=== PATIENT | female | born 1960 | race Caucasian/White ===

== ENCOUNTER 2020-04-02 11:19 | Observation (INO) | payer MEDICARE, OTHER ==
[2020-04-02] MEDS ORDERED: SODIUM CHLORIDE 0.9% (FLUSH) 10 ML SYG IV PRN ×2 (12:18→16:49)
[2020-04-02] MEDS ORDERED: ASPIRIN TABLET 325 MG TAB ONE (12:32)
--- NOTE | 2020-04-02 12:38 | RAD ---
EXAM DESCRIPTION: Chest,1 View CLINICAL HISTORY: 59 years Female, chest pain COMPARISON: None. TECHNIQUE: AP portable chest. FINDINGS: Heart size is normal with normal pulmonary vascularity. No consolidating infiltrate. No pulmonary mass or worrisome nodule. No pneumothorax or pleural effusion. Bones are unremarkable. IMPRESSION: No acute process is identified in the chest. Electronically signed by: Richard Ji MD 04/02/2020 12:36 PM CDT
--- NOTE | 2020-04-02 14:49 | ED.PDOC ---
History of Present Illness - General Chief Complaint: Cardiovascular Problem Stated Complaint: chest pain Time Seen by Provider: 04/02/20 14:25 Source: patient, RN notes reviewed, Vital Signs reviewed, family - - History of Present Illness Initial Comments: Patient is a 59-year-old white female who presents with recurrent intermittent chest pain for the last week. It is worsening. It is substernal and radiates to the left shoulder. Is pressure and tightness. Worsened with exertion. Better with rest. The episodes last about 15 minutes. With the chest pain she gets short of breath. No diaphoresis. Timing/Duration: 1 week, getting worse, intermittent, other - 2-3 episodes over the last week. They are worsening. The pain lasts approximately 15 minutes before going away. Severity/Quality: moderate, pressure, tightness Location: substernal Chest Pain Radiation: shoulders - left Activities at Onset: activity Prior Chest Pain/Cardiac Workup: no prior chest pain, no prior cardiac workup Improving Factors: rest Worsening Factors: movement Nitro Today/Relief: no nitro taken today Aspirin Treatment Today: 81 mg x 4 Associated Symptoms: fatigue, shortness of breath Allergies/Adverse Reactions: Allergies NO KNOWN ALLERGY Allergy (Verified 04/02/20 11:39) Home Medications: Ambulatory Orders NK 04/02/20 Review of Systems - Review of Systems Constitutional: States: see HPI, malaise, weakness. Denies: chills, fever EENTM: States: no symptoms reported. Denies: eye pain, blurred vision, double vision Respiratory: States: see HPI, short of breath. Denies: cough, stridor, wheezing Cardiology: States: see HPI, chest pain. Denies: palpitations, syncope Gastrointestinal/Abdominal: States: no symptoms reported. Denies: abdominal pain, diarrhea, nausea, vomiting Genitourinary: States: no symptoms reported Musculoskeletal: States: no symptoms reported. Denies: back pain, neck pain Skin: States: no symptoms reported. Denies: change in color, rash Neurological: States: no symptoms reported. Denies: tingling, tremors, weakness Endocrine: States: no symptoms reported Hematologic/Lymphatic: States: no symptoms reported All other Systems: Reviewed and Negative Past Medical History (General) - Patient Medical History Hx Asthma: No Hx of COPD: No Hx Cardiac Disorders: No Hx Congestive Heart Failure: No Hx Hypertension: No Hx Diabetes: No Surgical History: other - Vaccination History Hx Tetanus, Diphtheria Vaccination: No Hx Influenza Vaccination: No Hx Pneumococcal Vaccination: No - Social History Hx Tobacco Use: No Hx Alcohol Use: No Hx Substance Use: No Hx Substance Use Treatment: No Hx Depression: No - Female History Patient is a Female of Child Bearing Age (10 -59 yrs old): No Family Medical History - Family History Sister Living Status: Cause of : [place] @ age 51 Hx Family;Other: Brother due to [place] at age 51 Physical Exam - Physical Exam General Appearance: Alert, Anxious, Obese, Well Developed, Well Groomed, Well Hydrated, Well Nourished Eyes, Ears, Nose, Throat Exam: PERRL/EOMI, normal ENT inspection, pharynx normal Neck: non-tender, full range of motion, supple, normal inspection Respiratory: chest non-tender, lungs clear, normal breath sounds, no respiratory distress, no accessory muscle use Cardiovascular/Chest: normal peripheral pulses, regular rate, rhythm, no edema, no gallop, no JVD, no murmur Peripheral Pulses: radial,right: 2+, radial,left: 2+ Gastrointestinal/Abdominal: normal bowel sounds, non tender, soft, no organomegaly, no pulsatile mass Extremity: normal range of motion, non-tender, normal inspection, no pedal edema Neurologic: engineer technical staff II-XII nml as tested, no motor/sensory deficits, alert, normal mood/affect, oriented x 3 Skin Exam: normal color, warm/dry Lymphatic: no adenopathy Progress - Progress Progress: Differential diagnosis: Acute [place], unstable angina, pneumonia, anxiety among others. 04/02/20 16:01 Patient has had no further episodes of chest pain here in the emergency department. She has received her aspirin. Labs are unremarkable. Plan on admission to the hospital for further rule out and a nuclear stress test. I have discussed this plan of care with the patient and her and they voiced understanding and agreement. I discussed this patient with Irineo Martinez NP, and he accepts the patient for admission. Blaine Erwin M.D. #[id number] - Results/Orders Results/Orders: EXAM DESCRIPTION: Chest,1 View CLINICAL HISTORY: 59 years Female, chest pain COMPARISON: None. TECHNIQUE: AP portable chest. FINDINGS: Heart size is normal with normal pulmonary vascularity. No consolidating infiltrate. No pulmonary mass or worrisome nodule. No pneumothorax or pleural effusion. Bones are unremarkable. IMPRESSION: No acute process is identified in the chest. Electronically signed by: Richard Ji MD 04/02/2020 12:36 EKG performed 02 April 2020 1129 hrs.: Sinus bradycardia at 57 bpm, normal axis deviation, no ST or T wave changes, otherwise normal EKG. No comparison EKG available at this time. 04/02/20 12:18 IV Care:Saline Lock per Protoc QSHIFT Telemetry .ONCE Sodium Chloride 0.9% (Flush) [Saline Flush Syringe] 10 ml IV PRN PRN EKG Stat Pulse Ox Stat Laboratory Results - last 24 hr 04/02/20 04/02/20 11:55 14:48 WBC 6.5 RBC 4.47 Hgb 14.2 Hct 41.0 MCV 91.7 MCH 31.9 H MCHC 34.8 RDW 13.3 Plt Count 186 MPV 8.2 Absolute Neuts (auto) 4.20 Absolute Lymphs (auto) 1.50 Absolute Monos (auto) 0.60 Absolute Eos (auto) 0.20 Absolute Basos (auto) 0.00 Neutrophils % 65.1 Lymphocytes % 23.0 Monocytes % 9.0 Eosinophils % 2.7 Basophils % 0.2 PT 10.3 INR 1.04 PTT (SP) 26.3 Sodium 138 Potassium 3.8 Chloride 107 Carbon Dioxide 23 Anion Gap 11.8 L BUN 18 Creatinine 0.79 BUN/Creatinine Ratio 22.8 H Random Glucose 98 Serum Osmolality 277.6 Calcium 9.6 Magnesium 1.8 Creatine Kinase 61 CK-MB (CK-2) 1.4 CK-MB (CK-2) % Not Reportable Troponin I < 0.02 < 0.02 B-Natriuretic Peptide 8.2 L Vital Signs 04/02/20 04/02/20 11:25 12:19 Temperature 97.7 F Pulse Rate [ 70 pulse ox] Respiratory 20 Rate Blood Pressure 159/84 [Left Arm] O2 Sat by Pulse 96 96 Oximetry Departure - Departure Clinical Impression: Chest pain at rest, Morbid obesity Hypertension Qualifiers: Hypertension type: unspecified Qualified Code(s): I10 - Essential (primary) hypertension Time of Disposition: 16:03 Disposition: Admit Patient Condition: Good Departure Forms: ED Discharge - Pt. Copy, Patient Portal Self Enrollment Instructions: DI for Chest Pain Home Medications: Ambulatory Orders NK 04/02/20 Decision To Admit - Decistion To Admit Decision to Admit Reason: Admit from ER Decision to Admit Date: 04/02/20 Decision to Admit Time: 14:30
--- NOTE | 2020-04-02 16:06 | HP ---
SUPERVISING PHYSICIAN: Anand Schaffer MD CHIEF COMPLAINT: Chest pain. HISTORY OF PRESENT ILLNESS: Ms. Corrigan is a 59-year-old female patient who presented to the Emergency Room today with complaints of chest pain in the last week. On presentation to the ER, she actually had no complaints. She just had similar symptoms last week and then again yesterday. She noted the pain was substernal and radiated to her left shoulder with some pressure and tightness. The pain seemed to get worse with exertion and better with rest. She estimates the episode lasted about 15 minutes and did not go away with any intervention. She has had no palpitations, no diaphoresis, no syncopal episodes. She does note again that this has been intermittent. She has had a couple of episodes within the last week, but she has visited a family friend in [place] as she lives in [place] and was concerned. Therefore, she came to the ER for evaluation. Initial workup showed that her troponins were negative at less than 0.02. Her chemistries were unremarkable with normal electrolytes, normal magnesium and calcium levels. BNP 8.2. White count within normal limits at 6.5 with no left shift. Normal coagulations studies. A chest x-ray in the ER showed no acute process identified in the chest on a sing-view x-ray. Her 12-lead EKG showed a sinus bradycardia at [address] or T wave changes with no comparison at time of admission. She is morbidly obese, not currently under the care of a physician on any medications. She does have a significant family history of cardiac disease with a twin sister and a brother dying from myocardial infarctions at age 51. Given her risk factors of her obesity and lack of medical care, she is certainly at high risk for acute coronary syndrome. Therefore, she is going to be placed in observation for continued telemetry monitoring and further evaluation. She was stable at time of admission. PAST MEDICAL HISTORY: 1. Gastroesophageal reflux disease, untreated. 2. Depression, untreated. PAST SURGICAL HISTORY: 1. x2. 2. Right shoulder surgery. 3. Left breast lumpectomy. HOME MEDICATIONS: She is not on any chronic medications or [id number] medications. ALLERGIES: NO KNOWN DRUG ALLERGIES. FAMILY HISTORY: Mother at age 62 due to complications of COPD. Father at age 62 due to complications from skin cancer. She has 7 siblings. Of those siblings, one twin sister at age 51 due to myocardial infarction as well as one brother at 51 due to cardiovascular disease, heart failure and myocardial infarction. SOCIAL HISTORY: The patient is . She is currently visiting a friend. She resides in [place], [place]. Apparently the friend has terminal cancer on hospice. She does have a history of smoking tobacco, but quit about 8 years previously. She does not drink alcohol but on a rare occasion. She is disabled due to major depression and does not use any illicit drugs. REVIEW OF SYSTEMS: CONSTITUTIONAL: Positive for general malaise and weakness. Negative for any fevers, chills. HEENT: Negative for headaches, sore throats, earaches, nasal congestion, vision changes. RESPIRATORY: Positive for shortness of breath. Negative for coughing, wheezing. CARDIOVASCULAR: As noted in history of present illness, chest pain. Denies any palpitations or syncopal episodes. GASTROINTESTINAL: Negative for nausea, vomiting, diarrhea or abdominal pain. GENITOURINARY: Negative for dysuria, hematuria, polyuria. MUSCULOSKELETAL: Negative for chronic back pain, neck pain. SKIN: Negative for lesions, rashes or unexplained changes. NEUROLOGIC: Negative for tingling, tremor, weakness, other neurologic deficits, ataxia, seizures. HEMATOLOGIC: Negative for easy bruising, unexplained bleeding or transfusion reactions. PHYSICAL EXAMINATION: VITAL SIGNS: Initially on presentation to the ER, temperature 97.9, pulse 70, blood pressure 159/84, respirations 20, saturation 96% on room air. Weight 129 kg, BMI 47. GENERAL: The patient is morbidly obese, appears to be well hydrated. She does not appear to be in any acute distress. She is alert. HEENT: Tympanic membranes clear bilaterally. Oropharynx is pink, moist without any lesions. NECK: Supple, nontender with full range of motion. No jugular venous distention noted. RESPIRATORY: Lung sounds are clear to auscultation bilaterally without any rhonchi, wheezes or rales. CARDIOVASCULAR: Regular rate and rhythm without any appreciable murmurs, gallops, or rubs. ABDOMEN: Obese, but soft, nontender. Positive bowel sounds. EXTREMITIES: There is no cyanosis, clubbing or edema. NEUROLOGIC: Cranial nerves II-XII are grossly intact. Facial features are symmetrical. Extraocular movements are within normal limits. SKIN: Warm, pink and dry. LABORATORY: CBC showed normal white count 6,500, hemoglobin 14.2, hematocrit 41.0, platelet count 186,000. Differential without a left shift. Coagulation studies showed normal PT, PTT. Chemistries showed normal electrolytes with sodium 138, potassium 3.8, BUN 18, creatinine 0.79, glucose 98, calcium 9.6, magnesium 1.8, troponin less than 0.02 x2. BNP 8.2. RADIOLOGY: Chest x-ray in the Emergency Room per radiologic interpretation of single-view chest showed no acute cardiopulmonary processes within the chest. EKG showed sinus bradycardia with a rate of 57. No ST or T-wave changes noted to indicate acute ischemic or injury patter. There was no EKG available for comparison at time of exam. ASSESSMENT: 1. Chest pain, extended rule out with high risk factors including morbid obesity and positive family history, not currently under the care of a primary care physician. 2. Hypertension, not treated. 3. Morbid obesity with a body mass index of 47.3. 4. History of gastroesophageal reflux disease, not currently treated. 5. History of major depression, anxiety, not currently treated. PLAN: Ms. Corrigan is going to be placed in observation for an extended rule out given that she does have high risk factors and a positive family history and is morbidly obese for acute coronary syndrome rule out. She will be on cardiac telemetry per protocol. She will be on DVT prophylaxis per protocol with Lovenox. She will probably go home tomorrow. She will need to followup with a primary care physician and we will need to stress this at some point. She is not on any chronic medications, so prior to discharge, I did give her aspirin on admission, she will need to be discharged probably on aspirin and a beta lukasz and possibly a low dose lisinopril for treatment of hypertension, but again, she has no primary care physician and does not reside in [place]. We hold of any additional pain management. If she does have recurrence of pain, certainly we will readdress at that point. Again, I anticipate discharging tomorrow. I have ordered a lipid panel on her in the morning. Based on that, she will probably need to be on a statin as well. We will plan on getting a repeat EKG in the morning as well as final cardiac troponin. Until the patient can transition to outpatient management, we will continue to monitor and treat as needed. #[id number] [facility]
[2020-04-02] MEDS ORDERED: NITROGLYCERIN 0.4 MG 25 EA TAB SL PRN (16:49)
[2020-04-02] MEDS ORDERED: MORPHINE SULFATE INJ 10 MG/ML VIAL IV PRN (16:49)
[2020-04-02] MEDS ORDERED: ACETAMINOPHEN 325 MG TAB PO PRN (16:49)
[2020-04-02] MEDS ORDERED: ASPIRIN (CHEWABLE) 81 MG TAB PO ONE (16:49)
[2020-04-02] MEDS ORDERED: IV SET AND CAP CHANGE INJ INJ SCH (17:00)
[2020-04-02] MEDS ORDERED: PANTOPRAZOLE SODIUM IV 40 MG VIAL IV ONE (17:13)
[2020-04-02] MEDS: SODIUM CHLORIDE 0.9% (FLUSH) 10 ML SYG IV SCH (20:44)
[2020-04-03 08:16] VITALS: BP 115/78; TEMP 97.9
[2020-04-03 08:25] VITALS: O2SAT 93
[2020-04-03] MEDS ORDERED: ASPIRIN TABLET 325 MG TAB PO SCH (09:00)
[2020-04-03] MEDS ORDERED: ENOXAPARIN SODIUM 40 MG/0.4 ML SYG SUBCU SCH (09:00)
[2020-04-03] MEDS: SODIUM CHLORIDE 0.9% (FLUSH) 10 ML SYG IV SCH (09:11)
--- NOTE | 2020-04-03 11:51 | DS ---
SUPERVISING PHYSICIAN: Anand Schaffer MD DISCHARGE DIAGNOSIS: 1. Chest pain, extended rule out with high risk factors including morbid obesity and positive family history, not currently under the care of a primary care physician. 2. Hypertension, not treated, although she has had no hypertensive issues while in the hospital. 3. Morbid obesity with a body mass index of 47.3. 4. History of gastroesophageal reflux disease, not currently treated. 5. History of major depression and anxiety, not currently treated. HISTORY OF PRESENT ILLNESS: This is a 59-year-old female patient who came to the Emergency Room on the date of admission with complaints of chest pain that had been on and off during the last week. She actually had no complaints when she got to the Emergency Room, but she had had chest pain off and on over the past week and then the day prior to coming to the ER. The pain was substernal and radiated to her left shoulder with some pressure and tightness. The pain was worse with exertion and better with rest. The episode lasted about 15 minutes. There were no palpitations, no diaphoresis, no syncopal episodes. The chest pain has been intermittent. She is visiting a family friend here in [place] that has cancer and she will most likely be here for 2 to 3 months. She does live in [place]. Initial workup showed that her troponins were negative at less than 0.02. Her chemistries were unremarkable with electrolytes within normal limits. BNP 8.2. CBC was normal. She had normal coagulations studies. A chest x-ray showed no acute process identified. Her 12-lead EKG showed a sinus bradycardia at 57 with no noted changes. She is morbidly obese, not currently under the care of a physician and on no medications. She does have a significant family history of cardiac disease with a twin sister and a brother dying from myocardial infarctions at age 51. Given her risk factors including obesity and lack of medical care as well as family history, she is high risk for acute coronary syndrome and was placed in observation for continued monitoring and evaluation. HOSPITAL COURSE: She was admitted in stable condition. She was placed on chest pain protocol and serial cardiac enzymes were completed as well as being put on DVT prophylaxis with Lovenox. An echocardiogram was obtained. She was also placed on an aspirin on admission. She did say that she has hypertension, but her blood pressures were within normal limits while in the hospital. She has had no further complaints of chest pain and she will be discharged home today in stable condition. LABORATORY: CBC is unremarkable. Serial troponins were negative. Triglycerides 45, cholesterol 124, LDL 53.2, HDL 55. DISCHARGE PLAN: The patient will be discharged home in stable condition. She is to resume her previous diet and increase her activity as tolerated. Since she will be in [place] for 2 to 3 months, she has a hospital followup appointment with Dr. Anand Schaffer at [facility]. She has been instructed that it will be a Telehealth visit and they will review her echocardiogram as well as updated clinical presentation. Routinely, she is not on any medications, but I will send her home on a daily aspirin as well as 30 days of pantoprazole since she does have a history of GERD. At this point, I will not start her on any hypertensive and will have Dr. Schaffer evaluate that during the office visit. She is to return to the hospital or followup with Dr. Schaffer for any problems or complications. DISCHARGE MEDICATIONS: 1. Aspirin. 2. Pantoprazole. #[id number] [facility]
== END 2020-04-03 11:48 | disposition home or self-care (01) ==
LOC: ER 11:19 → MS 16:05
PROVIDERS: ADMIT Nurse Practitioner Family; ATTEND Nurse Practitioner Acute Care
DX: R07.89 Other chest pain (principal); I10 Essential (primary) hypertension; E66.01 Morbid (severe) obesity due to excess calories; Z68.42 Body mass index [BMI] 45.0-49.9, adult; K21.9 Gastro-esophageal reflux disease without esophagitis; F32.9 Major depressive disorder, single episode, unspecified; F41.9 Anxiety disorder, unspecified; R00.1 Bradycardia, unspecified; R06.02 Shortness of breath; R53.83 Other fatigue; Z87.891 Personal history of nicotine dependence; Z82.49 Family history of ischemic heart disease and other diseases of the circulatory system; Z83.6 Family history of other diseases of the respiratory system; Z80.8 Family history of malignant neoplasm of other organs or systems
CPT/HCPCS: 96374; 96372; J1650; A4216; 80061; 36415 ×3; 82550; 80048; 82553; 85025; 85730; 85610; 84484 ×3; 83880; 71045; 94760; 99285; 93306; 93005; G0378